=== PATIENT | male | born 1965 | race Caucasian/White ===

== ENCOUNTER 2019-05-25 11:02 | Outpatient (CLI) | payer MEDICAID ==
[~2019-05-25] VITALS: Ht 172.7 cm; Wt 55.0 kg
--- NOTE | ~2019-05-25 | HEMODYNAMI ---
PATIENT:ALISON RUTH MEDICAL RECORD: [id number] : 67 LOCATION:[facility] ADMISSION DATE: 05/25/19 Generatedon:05/25/201915:24 Patient name: ALISON RUTH Patient #: [id number] SSN: : 1965 Date of study: 05/25/2019 Page: Of Hemodynamic Procedure Report Patient Data Patient Demographics Procedure consent was obtained First Name: ALISON Gender: Male Last Name: FLORY : 1965 Patient #: [id number] Age: 53 year(s) Race: Unknown Additional ID: [id number] Contact details Address: [address] [place] [address] State: [place] City: [place] Zip code: [address] Past Medical History Allergies: No known allergies Admission Admission Data Admission Date: 05/25/2019 Admission Time: 11:02 Arrival Date: 05/25/2019 Arrival Time: 0:00 Room #: [facility] Height (in.): 67.72 BSA: 1.65 (m2) Height (cm.): 172 BMI: 18.59 (kg/m2) Weight (lbs.): 121.25 Weight (kg.): 55 Procedure Procedure Types Cath Procedure Diagnostic Procedure [facility] w/Coronaries Procedure Description Procedure Date Procedure Date: 05/25/2019 Procedure Start Time: 15:13 Procedure End Time: 15:21 Procedure Staff Name Function Ahsan Rai MD Performing Physician Janay Nickerson RT Monitor Funmilayo Garcia RT Scrub Cat Napier RN Nurse Procedure Data Cath Procedure Fluoroscopy Diagnostic fluoroscopy Total fluoroscopy Time: 2 time: 2 min min Diagnostic fluoroscopy Total fluoroscopy dose: 249 dose: 249 mGy mGy Contrast Material Contrast Material Type Amount (ml) Isovue 300 52 Entry Location Entry Primary Successful Side Size Upsize Upsize Entry Closure Crandall ccessful Closure Location (Fr) 1 (Fr) 2 (Fr) Remarks Device Remarks Radial Right 6 Fr Mechanical artery Short Compression Estimated blood loss: 5 ml Diagnostic catheters Device Type Used For End Catheter Placement DIAGNOSTIC [place] 110cm 5 Procedure Fr catheter ([id number]) Procedure Complications No complications Procedure Medications Medication Administration Route Dosage Oxygen etCO2 Nasal cannula 2 l/min Lidocaine 2% added to field 20 Heparin Flush Bag added to field 2 bags (1000units/500ml NS) 0.9% NaCl I.V. 100 ml/hr Versed I.V. 2 mg Fentanyl I.V. 100 mcg Radial Cocktail I.A. 1 syringe (Verapamil 2mg/Nitro 400mcg/Heparin 1500units) Versed I.V. 2 mg Fentanyl I.V. 50 mcg Hemodynamics Rest BSA: 1.65 (m2) O2 Consumption: Estimated: 202.93 (ml/min) O2 Consumption indexed : Estimated:122.99 (ml/min/m) Heart Rate: 80 (bpm) Pressure Samples Time Site Value (mmHg) Purpose Heart Use Rate(bpm) 15:17 LV 60/17,7 Snapshot 87 Gradients Valve Time Site Site Mean SEP/DFP Peak To Heart Use 1 2 (mmHg) (sec/min) Peak Rate (mmHg) (bpm) Aortic 15:17 LV AO 44 Snapshots Pre Cath Intra NCS Post Cath Vital Signs Time Heart Resp SPO2 etCO2 NIBP (mmHg) Rhythm Pain Sedation Rate (ipm) (%) (mmHg) Status Level (bpm) 15:08:51 81 15 100 0 116/85(101) NSR 0 (11) 10(A) , No pain 15:12:59 84 18 97 0 105/83(93) NSR 0 (11) 10(A) , No pain 15:17:11 96 18 97 25.4 100/54(74) NSR 0 (11) 10(A) , No pain 15:21:45 89 8 95 50.9 83/69(79) NSR 0 (11) 10(A) , No pain Medications Time Medication Route Dose Verified Delivered Reason Notes Effectiveness by by 15:08:04 Oxygen etCO2 2 l/min Ahsan Shelton used for Nasal Cecelia Napier technical support 1 software engineer cannula 15:08:12 Lidocaine 2% added 20ml Ahsan Foreman for local to vial [facility] anesthetic field MD MARIANO 15:08:18 Heparin Flush added 2 bags Ahsan Foreman used for Bag to [facility] procedure (1000units/500ml field MD MARIANO NS) 15:08:27 0.9% NaCl I.V. 100 Ahsan Shelton Per ml/hr St Jose flores MD 15:13:48 Versed I.V. 2 mg Ahsan Shelton for sedation St Jose Napier RN, MD 15:13:54 Fentanyl I.V. 100 mcg Ahsan Shelton for sedation St Jose Napier RN, MD 15:15:36 Radial Cocktail I.A. 1 Ahsan Foreman for (Verapamil syringe St Jose Rai vasodilation 2mg/Nitro MD MARIANO 400mcg/Heparin 1500units) 15:17:43 Versed I.V. 2 mg Ahsan Shelton for sedation St Jose Napier RN, MD 15:17:49 Fentanyl I.V. 50 mcg Ahsan Shelton for sedation St Jose Napier RN, MD Procedure Log Time Note 14:38:32 Cat Napier RN sent for patient. Start room use. 14:38:34 Procedure Status Elective Heart Cath (OP). 14:38:35 Time tracking: Regular hours (M-F 7:00 - 5:00) 14:38:38 Plan of Care:Hemodynamics will remain stable., Cardiac rhythm will remain stable., Comfort level will be maintained., Respiratory function will remain adequate., Patient/ family verbilizes understanding of procedure., Procedure tolerated without complication., Recovers from procedure without complications.. 14:38:40 Signed procedure consent form obtained from patient. 14:50:05 H&P Date Dictated: 05/20/2019 Within 30 days and on chart., H&P Addendum completed by physician on day of procedure. (MUST COMPLETE FOR ALL OUTPATIENTS). 14:50:13 Patient allergic to No known allergies 14:55:37 Patient received from Pre/Post Procedure Room to CCL 1 Alert and oriented. Tansferred to table in Supine position. 14:55:39 Warm blankets applied, and edward hugger turned on for patient comfort. 14:55:40 Correct patient and procedure confirmed by team. 14:55:41 ECG and BP/O2 sat monitors applied to patient. 14:56:08 Patient Weight : 121.25 lbs 15:07:50 Patient Height : 67.72 inches 15:07:52 Vital chart was started 15:07:56 Arrival Date: 05/25/2019 12:00:00 AM 15:08:01 Baseline sample Acquired. 15:08:04 Oxygen 2 l/min etCO2 Nasal cannula was administered by Cat Napier RN; used for procedure; Verbal order read back and verified. 15:08:04 Rhythm: sinus rhythm 15:08:05 Full Disclosure recording started 15:08:05 Pre-procedure instructions explained to patient. 15:08:06 Pre-op teaching completed and patient verbalized understanding. 15:08:07 Family unavailable. 15:08:09 Patient NPO since Midnight. 15:08:12 Lidocaine 2% 20ml vial added to field was administered by Ahsan Rai MD; for local anesthetic; Verbal order read back and verified. 15:08:14 Is patient on blood thinner?No 15:08:18 Heparin Flush Bag (1000units/500ml NS) 2 bags added to field was administered by Ahsan Rai MD; used for procedure; Verbal order read back and verified. 15:08:18 Patient diabetic? No. 15:08:20 Is the patient allergic to Iodine/contrast media? No. 15:08:22 Previous problem with sedation/anesthesia? No ? 15:08:23 Snore? Yes 15:08:24 Sleep apnea? Yes 15:08:25 Deviated septum? No 15:08:27 0.9% NaCl 100 ml/hr I.V. was administered by Cat Napier RN; Per physician; Verbal order read back and verified. 15:08:27 Opens mouth fully? Yes 15:08:28 Sticks out tongue? Yes 15:08:35 Airway obstruction? Yes COPD, EMPHYSEMA 15:08:38 Dentures? No ? 15:08:42 Pre procedure: right dorsailis pedis pulse 1+ Palpable, but thready & weak; easily obliterated 15:08:44 Modified Ken's test Ulnar < 7 seconds 15:08:47 Patient pain scale 6/10 ?. 15:12:25 Lab results completed and on chart. 15:12:28 Right Radial & Right Groin area was prepped with chlora-prep and draped in sterile fashion 15:12:29 Alarms reviewed by R. N. 15:12:30 Sharps counted by scrub and verified by R.N. 15:12:34 --------ALL STOP TIME OUT------ 15:12:34 Final Timeout: patient, procedure, and site verified with staff and physician. All members of the team are in agreement. 15:12:36 Right Radial & Right Groin site verified by team. 15:12:39 Fire Safety Assessment: A--An alcohol-based skin anteseptic being used preoperatively., C--Open oxygen or nitrous oxide is being used., D--An ESU, laser, or fiber-optic light is being used. 15:12:47 Physical assessment completed. ASA score P 3 - A patient with severe systemic disease as per Ahsan Rai MD. 15:12:49 1) 90+ Normal kidney functon but urine findings or structural abnormalities or genetic trait point to kidney disease. 15:12:51 Maximum allowable contrast dose (3.7 X eGFR X 0.75)250 ml. 15:12:54 Sedation plan: IV Moderate Sedation Medication:Versed, Fentanyl 15:13:02 Use device set Radial Dx or PCI 15:13:07 Procedure started. 15:13:12 Local anesthetic to right radial artery with Lidocaine 2% by Ahsan Rai MD.INITIAL ACCESS ONLY 15:13:15 ACIST Syringe (24390) opened to sterile field. 15:13:17 Bag Decanter () opened to sterile field. 15:13:17 ACIST Hand Control (44507) opened to sterile field. 15:13:17 ACIST Manifold (55479) opened to sterile field. 15:13:18 Tegaderm 4 x 4 (1626W) opened to sterile field. 15:13:20 Medline Cath Pack ([id number]) opened to sterile field. 15:13:21 MBrace Wrist Support (144303601) opened to sterile field. 15:13:23 EMERALD Guide Wire (111-328) opened to sterile field. 15:13:24 SHEATH 6FR RAIN (1939904) opened to sterile field. 15:13:48 Versed 2 mg I.V. was administered by Cat Napier RN; for sedation; Verbal order read back and verified. 15:13:54 Fentanyl 100 mcg I.V. was administered by Cat Napier RN; for sedation; Verbal order read back and verified. 15:14:19 A 6 Fr Short sheath was inserted into the Right Radial artery 15:15:20 A DIAGNOSTIC [place] 110cm 5 Fr catheter (345266) was advanced over the wire and used for Procedure. 15:15:36 Radial Cocktail (Verapamil 2mg/Nitro 400mcg/Heparin 1500units) 1 syringe I.A. was administered by Ahsan Rai MD; for vasodilation; Verbal order read back and verified. 15:16:45 LV gram done using HAGER 15:16:47 Injector settings: Ml/sec: 5, Volume: 15, 15:17:03 LV hemodynamics recorded. 15:17:20 EF : 50 % 15:17:38 RCA angiography performed. 15:17:43 Versed 2 mg I.V. was administered by Cat Napier RN; for sedation; Verbal order read back and verified. 15:17:49 Fentanyl 50 mcg I.V. was administered by Cat Napier RN; for sedation; Verbal order read back and verified. 15:19:09 LCA angiography performed. 15:19:11 Catheter removed. 15:19:17 ZEPHYR REGULAR TR BAND (602818) opened to sterile field. 15:19:44 Procedure ended.(Physican Out) 15:20:13 Sheath removed intact; hemostasis achieved with Mechanical Compression to the Right Radial artery. 15:20:17 Fluoroscopy time 02.00 minutes. 15:20:21 Fluoroscopy dose: 249 mGy 15:20:21 Flurop Dose total: 249 15:20:26 Dose Area Product 21493 mGy/cm. 15:20:30 Contrast amount:Isovue 300 52ml. 15:20:33 Maximum allowable dose exceeded? No. 15:20:33 Sharps counted by scrub and verified by R.N. 15:20:37 [place] band inflated with 7cc of air. 15:20:43 Post-procedure physical assessment completed. ASA score P 3 - A patient with severe systemic disease as per Ahsan Rai MD. 15:20:45 Post procedure rhythm: sinus rhythm 15:21:05 Estimated blood loss: 5 ml 15:21:06 Post procedure instruction explained to patient.Patient verbalizes understanding. 15:21:06 Patient needs reinforcement of post procedure teaching. 15:21:29 Procedure and supply charges have been captured, reviewed, submitted and are correct. 15:21:32 Procedure Complication : No complications 15:21:34 Vital chart was stopped 15:21:35 See physician's report for complete and final results. 15:21:37 Report given to [facility]. 15:21:39 Patient transfered to [facility] with Bed. 15:21:40 Procedure ended. 15:21:40 Full Disclosure recording stopped 15:21:46 End room use (Document Last) 15:22:03 End room use (Document Last) 15:22:22 End room use (Document Last) Device Usage Item Name Manufacture Quantity Catalog Hospital Part Current Minima l Lot# / Number Charge Number Stock Stock Serial# Code ACIST Acist 1 44834 329335 351101 804815 20 Syringe Medical (02526) Systems Inc Bag Microtek 1 2001S 631784 58165 112055 5 Decanter Medical Inc. () ACIST Hand Acist 1 84857 927491 770870 776511 5 Control Medical (46012) Systems Inc ACIST Acist 1 27310 738640 113810 140264 5 Manifold Medical (70719) Systems Inc Tegaderm 4 3M 1 1626W 247299 869421 563629 5 x 4 (1626W) Medline Medline 1 [id number] 658306 14538 148323 5 Cath Pack ([id number]) MBrace Advanced 1 140-0250-00 092773 67233 416219 5 Wrist Vascular Support Dynamics (179983668) EMERALD Cardinal 1 502-455 310919 820754 329945 5 Guide Wire Health (502-455) SHEATH 6FR Cardinal 1 1858600 896420 3227614 383953 5 [facility] Health (9773329) DIAGNOSTIC Terumo 1 40-5513 201520 637493 847238 5 [place] 110cm 5 Fr catheter (797713) ZEPHYR Cardinal 1 028187 839030 4416055 758308 5 REGULAR TR Health BAND (374165) Signature Audit Merritt Stage Time Signature Unsigned Intra-Procedure 05/25/2019 Janay Nickerson 3:22:03 PM RT(R) Intra-Procedure 05/25/2019 Cat Napier RN 3:22:22 PM Intra-Procedure 05/25/2019 Ahsan Khan 3:24:20 PM Jose MARIANO [id number] [place] [address]
[2019-05-25] MEDS ORDERED: SYMBICORT 16010.2 GM INH (12:05)
[2019-05-25] MEDS ORDERED: HYDROXYZINE HCL50 MG PO (12:05)
[2019-05-25] MEDS ORDERED: ALPHAGAN P15 ML EACH EYE (12:05)
[2019-05-25] MEDS ORDERED: OMEPRAZOLE CAP 20M PO (12:05)
[2019-05-25] MEDS ORDERED: LUMIGAN 0.01%2.5 ML EACH EYE (12:06)
[2019-05-25] MEDS ORDERED: TYLENOL #4 W/CO1 TAB PO (12:06)
[2019-05-25] MEDS ORDERED: CELEXA20 MG PO (12:06)
[2019-05-25] MEDS ORDERED: WELCHOL625 MG PO (12:07)
[2019-05-25 12:20] VITALS: BP 127/88; BMI 18.4
[2019-05-25 12:41] LABS: ALT (SGPT) 48 U/L (10-68); CALC OSMOLALITY 275 mosm/kg (275-300); CARBON DIOXIDE 29.4 mmol/L (21.0-32.0); CHLORIDE - SERUM 101 mmol/L (98-107); CHOL - HDL RATIO 2.1 ratio (2.3-4.9); CHOLESTEROL, TOTAL 209 mg/dL (0-200); CREATININE - SERUM 0.8 mg/dL (0.6-1.3); GLUCOSE 97 mg/dL (74-106); HDL CHOLESTEROL 102 mg/dL (32-96); LDL CHOLESTEROL 99 mg/dL (0-100); POTASSIUM - SERUM 3.4 mmol/L (3.5-5.1); SODIUM 138 mmol/L (136-145); TRIGLYCERIDE 40 mg/dL (30-200); UREA NITROGEN 12 mg/dL (7-18); eGFR NON AFRICAN AMERICAN > 90 mL/min (90-120)
[2019-05-25 13:01] LABS: BASOPHILS 0.2 % (0-2); EOSINOPHILS 0 % (0-7); HEMATOCRIT 40.4 % (42.0-54.0); HEMOGLOBIN 13.9 g/dL (13.5-17.5); IMMATURE GRANULOCYTES 0.1 % (0-5); LYMPHOCYTES 23.5 % (15-50); MCH 32.7 pg (26.0-34.0); MCHC 34.4 g/dL (31.0-37.0); MCV 95.1 fL (80.0-100.0); MEAN PLATELET VOLUME 9.9 fL (7.4-10.4); MONOCYTES 6.1 % (2-11); NEUTROPHILS 70.1 % (40-80); PLATELET COUNT 307 10x3/uL (130-400); RBC 4.25 10x6/uL (4.20-6.10); RDW 13.2 % (11.5-14.5); WBC 9.3 10x3/uL (4.8-10.8)
[2019-05-25 16:00] VITALS: BP 125/89
[2019-05-25 16:05] VITALS: BP 102/74; Ht 172.7 cm; Wt 55.0 kg
--- NOTE | 2019-05-25 16:08 | NUR ---
ALERT AND ORIENTED. V/S STABLE. TELEMERTY SHOWS SR 79. ZEPHYR TO RIGHT WRIST. FINGERS WARM. NO BLEEDING NOTED. SR UP WITH CALL LIGHT IN REACH WILL MONITOR
--- NOTE | 2019-05-25 17:27 | NUR ---
TR BAND REMOVED. NO BLEEDING NOTED. SR UP WITH CALL LIGHT IN REACH. NO NEEDS VOICED. V/S STABLE
[2019-05-25 21:08] VITALS: BP 105/64
[2019-05-26 00:20] VITALS: BP 99/65
--- NOTE | 2019-05-26 01:09 | NUR ---
ENTERED ROOM TO PLACE PT BACK ON TELEMETRY, PT STATED THAT HE DIDNT WANT TO WEAR IT ANY MORE. MONITOR BOX TURNED INTO SAS STATISTICAL PROGRAMMER.
--- NOTE | 2019-05-26 03:57 | NUR ---
I have reviewed this patient and I concur with the Shift Assessment completed by the Licensed Practical Nurse today this shift.
--- NOTE | 2019-05-26 04:03 | NUR ---
RESTING WITH EYES CLOSED, RESPERATIONS EVEN, NO S/S DISTRESS NOTED.
[2019-05-26 04:13] VITALS: BP 108/56
--- NOTE | 2019-05-26 07:21 | NUR ---
ALERT AND ORIENTED. REFUSED TO WEAR THE MONITOR. LEFT WRIST SL. RIGHT WRIST CATH SITE WITH DRSG DRY AND INTACT. DENNIES ANY NEEDS. UP AB MICAH. WILL MONITOR
[2019-05-26 09:12] VITALS: BP 118/81
--- NOTE | 2019-05-26 11:31 | NUR ---
I have reviewed this patient and I concur with the Shift Assessment completed by the Licensed Practical Nurse today this shift.
--- NOTE | 2019-05-26 12:46 | NUR ---
PT DISCHARGED. WAITING ON RIDE. IV DCD AND INTRUCTIONS GIVEN
--- NOTE | 2019-05-26 13:15 | MORECARE ---
CASE MANAGEMENT DISCHARGE SUMMARY PATIENT: ALISON RUTH UNIT: [id number] ADM DATE: 05/25/19 AGE: 53 : 67 SEX: M ROOM/BED: D.2121 AUTHOR: DIONICIO SELF PHYSICIAN: REFERRING PHYSICIAN: DANYELL LOPEZ MD DATE OF SERVICE: 05/26/19 Discharge Plan Patient Name: ALISON RUTH Facility: [facility]:[place] : 1965 Planned Disposition: Home Anticipated Discharge Date: 05/26/19 Discharge Date: Expected LOS: 1 Initial Reviewer: [email or web address] Initial Review Date: 05/26/2019 Generated: 05/26/19 2:15 pm DCPIA - Discharge Planning Initial Assessment Updated by [email or web address]: Garland Ramires on 05/26/19 1:14 pm * Is the patient Alert and Oriented? Yes * How many steps to enter\exit or inside your home? 1-0 / 2-I * PCP DR. REBEL CHAMORRO, [place] * Pharmacy [facility] [place] * Preadmission Environment Home Alone * ADLs Independent * Equipment BIPAP Nebulizer * Other Equipment MEDICAL EQUIPMENT PROVIDER IN [place] OR [place] * List name and contact numbers for known caregivers / representatives who currently or will assist patient after discharge: YANCY RUTH, [place], * Verbal permission to speak to the caregivers and representatives has been obtained from the patient. N/A * Community resources currently utilized None * Please name any agencies selected above. NONE * Additional services required to return to the preadmission environment? No * Can the patient safely return to the preadmission environment? Yes * Has this patient been hospitalized within the prior 30 days at any hospital? No Patient Name: ALISON RUTH Page [id number] at 1315 All edits/amendments must be made on the electronic document DICTATION DATE: 05/26/191314 SOLAR ENERGY SYSTEM INSTALLER HELPER: PHIL 05/26/19 131 RPT#: [id number] DC DATE: STATUS: REG [facility] [address] [place] [address] END OF REPORT
--- NOTE | 2019-05-26 13:24 | MORECARE ---
CASE MANAGEMENT DISCHARGE SUMMARY PATIENT: ALISON RUTH UNIT: [id number] ADM DATE: 05/25/19 AGE: 53 : 67 SEX: M ROOM/BED: D.2121 AUTHOR: DIONICIO SELF PHYSICIAN: REFERRING PHYSICIAN: DANYELL LOPEZ MD DATE OF SERVICE: 05/26/19 Discharge Plan Patient Name: ALISON RUTH Facility: [facility]:[place] : 1965 Planned Disposition: Home Anticipated Discharge Date: 05/26/19 Discharge Date: Expected LOS: 1 Initial Reviewer: [email or web address] Initial Review Date: 05/26/2019 Generated: 05/26/19 2:24 pm Comments DCP- Discharge Planning Updated by [email or web address]: Garland Ramires on 05/26/19 12:[address] Patient Name: ALISON RUTH Admission Status: Elective Accout number: [id number] Admission Date: 05-25-2019 : 1965 Admission Diagnosis: Attending: DANYELL LOPEZ Current LOS: 1 Anticipated DC Date: 05-26-2019 Planned Disposition: Home Primary Insurance: [place] [employer] [place] Discharge Planning Comments: CM RECEIVED REQUEST TO ARRANGE TRANSPORT HOME FOR DISCHARGE. CM MET WITH PT IN ROOM TO DISCUSS DISCHARGE PLANNING AND NEEDS. PT REPORTS LIVING AT HOME INDEPENDENTLY WITH HIS SPOUSE. PT HAS BIPAP AND NEBULIZER FROM UNKNOWN PROVIDER IN [facility]. PT HAS NO OUTSIDE SERVICES ASSISTING IN THE HOME. CM DISCUSSED AVAILABILITY OF HOME HEALTH, REHAB SERVICES AND MEDICAL EQUIPMENT. PT DENIES DISCHARGE NEEDS OTHER THAN TRANSPORT HOME, HE CAME VIA MEDICAID TRANSPORT. CM CALLED MEDICAID TRANSPORTATION, , SPOKE TO LEVI AND PROVIDED MEDICAID NUMBER OF [id number], ARRANGED ELECTRICIAN CHIEF FOR TRANSPORT HOME TODAY, THE SPECIFICATION WRITER WILL CALL NURSES STATION WHEN DOWNSTAIRS TO ELECTRICIAN CHIEF PT. FILLER IN AND BEDSIDE NURSE NOTIFIED. PT NOTIFIED. TRIP CONFIRMATION #[id number]. Training Technician: Garland Ramires DCPIA - Discharge Planning Initial Assessment Updated by [email or web address]: Garland Ramires on 05/26/19 1:14 pm * Is the patient Alert and Oriented? Yes * How many steps to enter\exit or inside your home? 1-0 / 2-I * PCP DR. REBEL CHAMORRO, [place] * Pharmacy [facility] IN [place] * Preadmission Environment Home Alone * ADLs Independent * Equipment BIPAP Nebulizer * Other Equipment MEDICAL EQUIPMENT PROVIDER IN [place] OR [place] * List name and contact numbers for known caregivers / representatives who currently or will assist patient after discharge: YANCY RUTH, SPOUSE, * Verbal permission to speak to the caregivers and representatives has been obtained from the patient. N/A * Community resources currently utilized None * Please name any agencies selected above. NONE * Additional services required to return to the preadmission environment? No * Can the patient safely return to the preadmission environment? Yes * Has this patient been hospitalized within the prior 30 days at any hospital? No Last DP export: 05/26/19 12:15 p Patient Name: ALISON RUTH Page [phone] at 1324 All edits/amendments must be made on the electronic document DICTATION DATE: 05/26/191323 BATCH AND FURNACE MANAGER: PHIL 05/26/19 1324 RPT#: [id number] DC DATE: STATUS: REG [facility] [address] [place] [address] END OF REPORT
--- NOTE | 2019-05-26 14:23 | OP ---
PATIENT NAME: ALISON RUTH MEDICAL RECORD: [id number] :[birth year] LOCATION:D.M2 D.2121 ADMISSION DATE: SURGEON: DANYELL LOPEZ MD DATE OF OPERATION: 05/25/2019 PROCEDURE: Left heart catheterization, selective coronary angiography, right radial approach. CATHETERS: [place] catheter, radial sheath. The procedure was well tolerated. The patient was returned to toribio. Sheath was removed. TR band was placed. Left ventriculography in 30-degree HAGER view. Normal wall motion and systolic function. CORONARY ANATOMY: LEFT MAIN: Left main is free of disease. LAD: Free of disease in the diagonal system. CIRCUMFLEX: Free of disease in the marginal system. RIGHT CORONARY ARTERY: Dominant artery gives rise to PDA, free of disease. IMPRESSION: Normal left ventricular systolic function and normal coronary anatomy. TRANSINT:[id number] Voice Confirmation ID: [id number] DOCUMENT ID: [id number] DANYELL LOPEZ MD at 1423 CC: [id number] DICTATION DATE: 05/25/19 1529 WEED ERADICATOR: 05/26/19 0149 REG [facility] [address] [place] [address]
--- NOTE | 2019-05-26 14:51 | NUR ---
PT DISCHARGED. TO [facility] FOR TRANSP[facility]ATION
== END 2019-05-26 14:54 | disposition home or self-care (01) ==
LOC: D.M2 11:02 → D.CATH 11:02 → D.CLR 12:21 → D.CATH 13:30 → D.M2 15:32 → D.SDCHOLD 15:44 → D.M2 15:44 → D.CATH 05-26 14:54
PROVIDERS: ATTEND Internal Medicine Interventional Cardiology
DX: I20.0 Unstable angina (principal); I10 Essential (primary) hypertension; R07.9 Chest pain, unspecified; J44.9 Chronic obstructive pulmonary disease, unspecified; I73.9 Peripheral vascular disease, unspecified

== ENCOUNTER → 2021-01-17 08:08 | Outpatient (CLI) | payer BC ==
[2019-05-25 16:05] VITALS: BMI 18.4
[~2021-01-17 08:08] MED LIST: ALPHAGAN P15 ML EACH EYE; CELEXA20 MG PO; HYDROXYZINE HCL50 MG PO; LUMIGAN 0.01%2.5 ML EACH EYE; OMEPRAZOLE CAP 20M PO; SYMBICORT 16010.2 GM INH; TYLENOL #4 W/CO1 TAB PO; WELCHOL625 MG PO
[2021-01-17 10:16] LABS: CALC OSMOLALITY 265 mosm/kg (275-300); CALCIUM 9.8 mg/dL (8.5-10.1); CARBON DIOXIDE 29.8 mmol/L (21.0-32.0); CHLORIDE - SERUM 96 mmol/L (98-107); CREATININE - SERUM 0.9 mg/dL (0.6-1.3); GLUCOSE 102 mg/dL (74-106); POTASSIUM - SERUM 4.3 mmol/L (3.5-5.1); SODIUM 134 mmol/L (136-145); UREA NITROGEN 8 mg/dL (7-18); eGFR NON AFRICAN AMERICAN > 90 mL/min (90-120)
== END | disposition home or self-care (01) ==
LOC: D.CT 08:00
PROVIDERS: ATTEND Internal Medicine Interventional Cardiology
DX: I71.4 Abdominal aortic aneurysm, without rupture (principal)